=== PATIENT | female | born 1955 | race Caucasian/White ===

== ENCOUNTER 2018-05-09 08:06 | Day surgery (SDC) | payer OTHER ==
[~2018-05-09] VITALS: Ht 157.5 cm; Wt 64.7 kg
[2018-05-09 09:25] VITALS: Ht 157.5 cm; Wt 64.7 kg
[2018-05-09] MEDS ORDERED: ASPI-903 PO (09:29)
[2018-05-09] MEDS ORDERED: GLIMEPIRIDE (09:29)
[2018-05-09] MEDS ORDERED: JANUMET (09:29)
[2018-05-09 10:02] VITALS: BP 124/67; PULSE 67; RESP 14
[2018-05-09] MEDS ORDERED: MIDAZOLAM 1 MG/ML 2 ML INJ ONE ×3 (11:10)
[2018-05-09] MEDS ORDERED: FENTAnyl 50 MCG/ML VIAL ONE (11:11)
[2018-05-09 11:27] VITALS: BP 119/58; PULSE 67; RESP 20
== END 2018-05-09 14:23 | disposition home or self-care (01) ==
LOC: GIL 08:06
PROVIDERS: ATTEND Internal Medicine Gastroenterology
DX: Z12.11 Encounter for screening for malignant neoplasm of colon (principal); K64.8 Other hemorrhoids; K29.30 Chronic superficial gastritis without bleeding; E11.9 Type 2 diabetes mellitus without complications
CPT/HCPCS: 43239; 45378; 82962; 88305; 88312; J2250; J3010; Z7610